=== PATIENT | female | born 1950 | race Caucasian/White ===

== ENCOUNTER → 2017-07-09 10:46 | Outpatient (POV) | payer MEDICARE, OTHER, SELFPAY ==
[2017-07-09 11:27] VITALS: BP 118/66; PULSE 72; RESP 20; TEMP 36.8; O2SAT 99
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
--- NOTE | 2017-07-09 11:52 | P.CONS_ITS ---
Assessment and Plan (1) Lumbar post-laminectomy syndrome Current visit: Yes Status: Chronic Category: Medical Code(s): M96.1 - Postlaminectomy syndrome, not elsewhere classified (2) Lumbosacral radiculopathy due to degenerative joint disease of spine Current visit: Yes Status: Chronic Category: Medical Code(s): M47.27 - Other spondylosis with radiculopathy, lumbosacral region (3) Degenerative joint disease (DJD) of lumbar spine Current visit: Yes Status: Chronic Qualifiers: Spinal osteoarthritis complication: with radiculopathy Qualified Code(s): M47.26 - Other spondylosis with radiculopathy, lumbar region Category: Medical Code(s): M47.816 - Spondylosis without myelopathy or radiculopathy, lumbar region - Assessment and plan all Dx Assessment and Plan for all problems:: Patient did have a successful intrathecal pump trial. We will proceed with permanent placement. She would like to be implanted and [place]. We will schedule appointment with . We will also have her psychological information faxed to my office and to Dr. Carroll. This will be permanent intrathecal pain pump with Dilaudid 1 mg/mL to start at 0.1 mg per day. Catheter tip will be at T12. HPI - Data of Consult Patient: new to practice Consult date: 07/09/17 Requesting Physician: Shakeel Cid MD Primary Care Provider: Referral ProviderMD - Consult Narrative Reason for consult: Intrathecal pain pump implant History of present illness: Ms. Lezama is a 66 year old female who I have seen at [facility]. She has degenerative disease of lumbar spine with lumbar radiculopathy symptoms and postlaminectomy syndrome lumbar spine. She has failed all previous conservative therapies including injections, physical therapy and oral medications. She is also failed previous surgery. She has had successful neuropsychological evaluation. She had a previous lumbar fusion at L4-L5. She did very well with her intrathecal pump trial at [facility]. She had 80% relief in her pain symptoms. She was much more functional. She wants to proceed with permanent placement of intrathecal pain pump. She is currently on hydrocodone 5 mg 3 times a day. We will wean her off of this prior to implant of her intrathecal pain pump. CC: Shakeel Cid MD [facility] History I have reviewed the patient's past medical history: Yes Medical History: Reports:: Hyperlipidemia, Hypertension Denies:: Diabetes Mellitus Type 1, Diabetes Mellitus Type 2 - *Social History Educational Level: Attended High School Smoking Status: Current every day smoker Tobacco Type: cigarettes # Packs/Day (cigarettes): 2 #Yrs smoked (if former smoker): 45 Alcohol Intake: never Occupational Status: disabled Housing: house - Psychiatric History Expresses thoughts of harming self/others: None Suicide Plan Description: No Plan *Family Hx:: Unable to obtain Review of Systems - Review of Systems Review of systems:: pertinent systems reviewed and negative unless documented below - *Musculoskeletal Reports joint pain, Reports back pain, Reports limited joint movement, Reports neck pain, Reports radiating pain into limb, Reports stiffness - *Neurologic Reports abnormal walking, Reports radiating pain Objective Vital signs: Temp Pulse Resp BP Pulse Ox 98.2 F 72 20 118/66 99 07/09/17 11:27 07/09/17 11:27 07/09/17 11:27 07/09/17 11:27 07/09/17 11:27 - Routine Back/Spine/Pelvis Exam Back/Spine: Present: para
== END ==
PROVIDERS: Visit Provider Anesthesiology
DX: M47.27 Other spondylosis with radiculopathy, lumbosacral region (principal); M47.26 Other spondylosis with radiculopathy, lumbar region; M96.1 Postlaminectomy syndrome, not elsewhere classified
CPT/HCPCS: 99202